=== PATIENT | female | born 1985 | race Caucasian/White ===

== ENCOUNTER 2018-08-01 21:37 | Emergency (ER) | payer BC, OTHER ==
[2018-08-01 21:52] VITALS: BP 127/82
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
== END 2018-08-01 22:16 | disposition home or self-care (01) ==
LOC: MW.ED 21:37
DX: S00.12XA Contusion of left eyelid and periocular area, initial encounter (principal); Y04.8XXA Assault by other bodily force, initial encounter; Z88.1 Allergy status to other antibiotic agents; Z88.0 Allergy status to penicillin; Z88.8 Allergy status to other drugs, medicaments and biological substances; F17.210 Nicotine dependence, cigarettes, uncomplicated
CPT/HCPCS: 99283